=== PATIENT | male | born 1950 | race Caucasian/White ===

== ENCOUNTER 2018-02-18 02:03 | Emergency (ER) | payer OTHER, MEDICARE ==
[~2018-02-18] VITALS: Ht 175.3 cm; Wt 94.9 kg
[2018-02-18 03:54] LABS: HEMATOCRIT 42.4 % (38.0-50.0); HEMOGLOBIN 14.4 G/DL (12.5-16.6); MCH 32.2 PG (29.0-34.0); MCV 94.9 FL (86-99); PLATELET COUNT 140 K/uL (156-360); RBC DIS.WIDTH-CV 11.9 % (11.8-14.6); RED BLOOD COUNT 4.47 M/uL (4.00-5.50); WHITE BLOOD COUNT 3.6 K/uL (4.1-10.2)
[2018-02-18 04:03] LABS: CHLORIDE 104 mEq/L (99-109); POTASSIUM 4.1 mEq/L (3.7-5.4); SODIUM 141 mEq/L (136-147)
[2018-02-18 04:05] LABS: GLUCOSE 92 mg/dL (70-99)
[2018-02-18 04:06] LABS: TOTAL PROTEIN 7.4 g/dL (6.4-8.3)
[2018-02-18 04:07] LABS: TOTAL BILIRUBIN 0.8 mg/dL (0.0-1.0)
[2018-02-18 04:09] LABS: ALKALINE PHOSPHATASE 83 IU/L (3-129); CREATININE 0.8 mg/dL (0.6-1.3); GFR ESTIMATE (CALCULATED) > 59 mL/min/ (58.99-99999)
[2018-02-18 04:10] LABS: UREA NITROGEN (BUN) 13 mg/dL (9-23)
[2018-02-18 04:11] LABS: AST (GOT) 24 IU/L (2-34)
[2018-02-18 04:12] LABS: ALT (GPT) 18 IU/L (3-49)
[2018-02-18] MEDS ORDERED: PREDNISONE50 MG PO (04:55)
[2018-02-18] MEDS ORDERED: PROAIR RESPICL90 MCG IH (04:55)
[2018-02-18] MEDS ORDERED: AZITHROMYCIN250 MG PO (04:55)
[2018-02-18 05:39] VITALS: BP 155/91
== END 2018-02-18 05:40 | disposition home or self-care (01) ==
LOC: EME 02:03
PROVIDERS: Emergency Medicine
DX: J40 Bronchitis, not specified as acute or chronic (principal); J18.9 Pneumonia, unspecified organism
CPT/HCPCS: 71046; 80053; 83605; 85027; 94640; 99281; 99284; J7512